=== PATIENT | male | born 1995 | race Caucasian/White ===

== ENCOUNTER 2022-10-07 09:28 | Emergency (ER) | payer BC ==
[~2022-10-07] VITALS: Ht 182.9 cm; Wt 115.1 kg
[2022-10-07 09:29] VITALS: TEMP 98.3
[2022-10-07] MEDS ORDERED: advil (09:55)
[2022-10-07] MEDS ORDERED: KETOROLAC 30 MG/ML 1ML VIAL IV ONE (12:45)
[2022-10-07 13:17] LABS: BASO # 0.1 10^3/uL (0.0-0.2); BASO % 0.3 % (0.0-1.0); EOS % 0.1 % (0.0-3.0); HEMATOCRIT 45.2 % (42.0-52.0); HEMOGLOBIN 16.4 g/dl (13.5-17.5); LYMPH # 1.1 10^3/uL (1.5-5.0); LYMPH % 6.9 % (24.0-44.0); MEAN CORPUSCULAR HGB CONC 36.3 g/dl (32.0-36.5); MEAN CORPUSCULAR VOLUME 90.9 fl (80.0-96.0); MONO # 0.6 10^3/uL (0.0-0.8); MONO % 3.6 % (2.0-8.0); NEUTROPHILS # 13.4 10^3/uL (1.5-8.5); NEUTROPHILS % 88.8 % (36.0-66.0); PLATELET COUNT, AUTOMATED 175 10^3/uL (150-450); RED BLOOD COUNT 4.97 10^6/uL (4.30-6.10); WHITE BLOOD COUNT 15.1 10^3/uL (4.0-10.0)
[2022-10-07] MEDS ORDERED: cefTRIAXone SOD 1 GM in D5W MINI-BAG PLUS 50 ML IV ONE (13:40)
[2022-10-07] MEDS ORDERED: NS 1,000 ML IV ONE (13:40)
[2022-10-07 13:49] LABS: BLOOD UREA NITROGEN 13 MG/DL (9-23); CALCIUM LEVEL 9.6 MG/DL (8.5-10.1); CARBON DIOXIDE LEVEL 25 MMOL/L (20-31); CHLORIDE LEVEL 103 MMOL/L (98-107); CREATININE FOR GFR 1.35 MG/DL (0.70-1.30); GLOMERULAR FILTRATION RATE > 60.0 (>60); GLUCOSE, FASTING 105 MG/DL (60-100); POTASSIUM SERUM 4.5 MMOL/L (3.5-5.1); SODIUM LEVEL 138 MMOL/L (136-145)
[2022-10-07 14:53] LABS: GC DNA AMPLIFICATION NEGATIVE (NEGATIVE)
[2022-10-07] MEDS ORDERED: ONDA4TAB6 PO (14:53)
[2022-10-07] MEDS ORDERED: IBUP80TA PO (14:53)
[2022-10-07] MEDS ORDERED: FLOM0.4C39 PO (14:53)
[2022-10-07] MEDS ORDERED: METR-265 PO (14:53)
[2022-10-07 15:07] VITALS: BP 129/72; O2SAT 98
== END 2022-10-07 15:15 | disposition home or self-care (01) ==
LOC: M ED 09:28
DX: N20.1 Calculus of ureter (principal); A59.03 Trichomonal cystitis and urethritis; Z79.83 Long term (current) use of bisphosphonates; Z79.899 Other long term (current) drug therapy
CPT/HCPCS: 36415; 74176; 80048; 81000; 81015; 85025; 87086; 87661; 87810; 87850; 96365; 96375; 99284; J0696; J1885